=== PATIENT | female | born 1995 | race Caucasian/White ===

== ENCOUNTER 2017-10-31 02:10 | Emergency (ER) | payer MEDICAID ==
[~2017-10-31] VITALS: Ht 157.5 cm; Wt 47.0 kg
[2017-10-31] MEDS ORDERED: ACETAMINOPHEN 500 MG TABLET PO ONE (06:45)
[2017-10-31] MEDS ORDERED: IBUPROFEN 600 MG TABLET PO ONE (06:45)
[2017-10-31 07:07] VITALS: BP 135/86
== END 2017-10-31 08:03 | disposition home or self-care (01) ==
LOC: EMS 02:12
DX: S39.012A Strain of muscle, fascia and tendon of lower back, initial encounter (principal); V49.9XXA Car occupant (driver) (passenger) injured in unspecified traffic accident, initial encounter; Y93.89 Activity, other specified; Y92.89 Other specified places as the place of occurrence of the external cause; Y99.8 Other external cause status
CPT/HCPCS: 72100; 99284